=== PATIENT | female | born 1950 | race Caucasian/White ===

== ENCOUNTER 2017-05-14 14:53 | Emergency (ER) | payer MEDICARE, OTHER ==
[~2017-05-14] VITALS: Ht 167.6 cm; Wt 82.0 kg
[2017-05-14 14:55] VITALS: BP 138/85; PULSE 95; RESP 18; TEMP 99.8; O2SAT 97
--- NOTE | 2017-05-14 15:40 | PD ---
Physical Exam Time Seen by Provider: 15:37 Narrative 67yo F c/o laceration to R forearm that occurred on April 28. Stitches taken out Sunday at urgent care and wound is open and "not healing correctly." Denies fever, vomiting. Patient seen in triage. Awaiting bed placement. VS reviewed. Data Data Last Documented VS Vital Signs Date Time Temp Pulse Resp B/P Pulse Ox O2 Delivery O2 Flow Rate FiO2 05/14/17 14:55 99.8 95 18 138/85 97 Room Air [facility] Supervised Visit with YENI: Aleisha Torres May 14, 2017 15:40
--- NOTE | 2017-05-14 18:40 | PD ---
HPI Chief Complaint: Wound/Suture/Staple Re-Check Time Seen by Provider: 18:36 Travel History International Travel<30 days: No Contact w/Intl Traveler<30days: No Traveled to known affect area: No History of Present Illness HPI 67 YO left-hand dominant female presents to the ED for evaluation of laceration repair of the right forearm. Patient states that she sustained the wound on . Repair performed the same day in [place]. She had the sutures removed on at [facility]. She denies numbness, tingling, weakness, limitations to range of motion of the hand. She denies fever or chills. She states that the wound looks strange and this is what prompted her to seek evaluation today. She states that she took a course of antibiotics but is unable to identify the drug. Patient is a current smoker. [facility] Social History Tobacco Use: Yes Allergies-Medications (Allergen,Severity, Reaction): Coded Allergies: Clindamycin (Verified Allergy, Severe, Hives, 05/14/17) Penicillin (Verified Allergy, Severe, Hives, 05/14/17) Reported Meds & Prescriptions Reported Meds & Active Scripts Active Naproxen 500 Mg Tab 500 Mg PO BID Bactrim DS (Sulfamethoxazole-Trimethoprim) 800-160 Mg Tab 1 Tab PO BID 5 Days Reported Fiber (Calcium Polycarbophil) 625 Mg Tab 625 Mg PO PRN Stool Softener (Docusate Sodium) 50 Mg Capsule Fish Oil ([place]ome-3 Fatty Acids) 300 Mg Capsule Multi Vitamin Daily (Multiple Vitamin) 1 Tab Tab Calcium 600 (Calcium Carbonate) 1,500 Mg Tab 1,500 Mg PO Flovent Hfa 10.6 GM Inh (Fluticasone Propionate) 44 Mcg/Act Inh 2 Puff INH BID Use daily at the same time. Flexeril (Cyclobenzaprine HCl) 10 Mg Tab 10 Mg PO TID Rochelle (Hydrocodone-Acetaminophen) 10-325 Mg Tab 1 Tab PO DAILY PRN Fluoxetine (Fluoxetine HCl) 40 Mg Cap 40 Cap PO DAILY Trazodone (Trazodone HCl) 50 Mg Tab 50 Mg PO HS Omeprazole 20 Mg Cap Review of Systems Except as stated in HPI: all other systems reviewed are Neg Physical Exam Narrative GENERAL: Well-nourished, well-developed white female in no acute distress. SKIN: Focused skin assessment warm/dry. There is a jagged laceration of the posterior aspect of the right forearm. The laceration is full-thickness. The fascia is undisturbed. This laceration totals approximately 8-10 cm. There is a large hematoma surrounding the wound edges and the wound is partially granulated. The laceration creates 2 flaps of skin. The radial side flap is is healthy and viable. The ulnar side flap edge is dusky ~ 1cm. Mildly tender. No erythema or warmth. HEAD: Normocephalic. EYES: No scleral icterus. No injection or drainage. NECK: Supple, trachea midline. No JVD or lymphadenopathy. CARDIOVASCULAR: Regular rate and rhythm without murmurs, gallops, or rubs. RESPIRATORY: Breath sounds equal bilaterally. No accessory muscle use. GASTROINTESTINAL: Abdomen soft, non-tender, nondistended. MUSCULOSKELETAL: No cyanosis, or edema. Focused right upper extremity exam: 2+ radial pulse. The patient retains full, active, painless ROM of the upper extremity. Neurovascularly intact distally. BACK: Nontender without obvious deformity. No CVA tenderness. Data Data Last Documented VS Vital Signs Date Time Temp Pulse Resp B/P Pulse Ox O2 Delivery O2 Flow Rate FiO2 05/14/17 20:19 73 18 129/82 98 05/14/17 14:55 99.8 Room Air Orders Acetamin-Hydrocod 325-5 Mg (Rochelle 5-325 (05/14/17 20:00) MDM Medical Decision Making Medical Screen Exam Complete: Yes Emergency Medical Condition: Yes Differential Diagnosis Wound dehiscence versus hematoma evacuation versus wound debridement versus laceration versus wound infection versus cellulitis versus other Narrative Course 67 YO left-hand dominant female presents to the ED for evaluation of laceration repair of the right forearm. Patient sustained the wound on 04/28, cut it on a latch in her RV. Repair performed the same day in [place]. She had the sutures removed on 05/11 at [facility]. She states that she took a course of antibiotics but is unable to identify the drug. Patient is a current smoker. 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 Vitals reviewed. Physical exam reveals a 8-10 cm irregular laceration of the posterior aspect of the right forearm. No warmth or erythema noted. The wound is partially granulated. Large hematoma noted. The radial aspect of the wound edge is dusky. Irrigation and evacuation of the hematoma was performed at bedside. Please see procedure note for details. The edges of the wounds were approximated with steri strips and a pressure dressing was applied. The patient was instructed to return for reevaluation of the wound in 72 hours. I discussed the possibility of the need for surgical revision or intervention by the benefits specialist with the patient. I think this will likely be needed. I prescribed a course of Bactrim and Naproxen. Shes instructed to take the meds as prescribed and follow up as discussed. The patient indicated understanding of the importance of follow up. She is stable and discharged home. Procedures Procedure Narrative Wound irrigation and debridement: There is a jagged 810 cm laceration on the posterior aspect of the right forearm. The wound edges were infiltrated with a 50-50 mixture of 1% lidocaine with epinephrine and 1% lidocaine. Adequate anesthesia was obtained. The wound was irrigated with approximately 1500 mL's of normal saline. A surgical scrub brush was used to mechanically debride the wound. Pressure of the wound edges expelled a large hematoma and the skin flaps were copiously irrigated. Small amounts of nonviable tissue were removed. The wound edges were reapproximated with Mastisol and Steri-Strips. A pressure dressing was applied over the area. The patient tolerated this procedure well. She is instructed to keep the wound clean, dry and covered, follow up in 72 hours for wound recheck. Diagnosis Primary Impression: Encounter for wound re-check Referrals: Primary Care Physician Patient Instructions: Acute Wound Care (ED), General Instructions Additional Instructions: Rest, hydrate. Do not change the dressing until wound is rechecked. Do not submerge the wound. Take the antibiotics as they are prescribed. Naprosyn twice a day as prescribed for pain. Follow-up in 72 hours at the emergency department as discussed. Monitor for signs of infection, return sooner if they should appear. Return to the ED for any urgent or emergent medical condition. Med/Other Pt SpecificInfo: Prescription(s) given Scripts Naproxen 500 Mg [id number] Mg PO BID #10 TAB Ref 0 Prov:Doreen Panda DO 05/14/17 Sulfamethoxazole-Trimethoprim (Bactrim DS)800-160 Mg Tab1 Tab PO BID 5 Days Ref 0 Prov:Doreen Panda DO 05/14/17 Disposition: 01 DISCHARGE HOME Condition: Stable Lucia Kiser May 14, 2017 18:40
[2017-05-14] MEDS ORDERED: OMEP20CA2 (18:46)
[2017-05-14] MEDS ORDERED: CYCL1TAB29 PO (18:46)
[2017-05-14] MEDS ORDERED: TRAZ50TA12 PO (18:46)
[2017-05-14] MEDS ORDERED: FLUO40CA PO (18:46)
[2017-05-14] MEDS ORDERED: HYDR-3366 PO (18:46)
[2017-05-14] MEDS ORDERED: MULT1TAB46 (18:47)
[2017-05-14] MEDS ORDERED: FIBE625T10 PO (18:47)
[2017-05-14] MEDS ORDERED: DOCU50CA5 (18:47)
[2017-05-14] MEDS ORDERED: FLUTI44I INH (18:47)
[2017-05-14] MEDS ORDERED: CALCTAB94 PO (18:47)
[2017-05-14] MEDS ORDERED: OMEG300C5 (18:47)
[2017-05-14] MEDS ORDERED: NAPR500T PO (19:52)
[2017-05-14] MEDS ORDERED: BACT800T5 PO (19:52)
[2017-05-14] MEDS ORDERED: ACETAMINOPHEN/HYDROcodone 325 MG/5 MG TAB PO ONE (20:00)
[2017-05-14 20:19] VITALS: BP 129/82
== END 2017-05-14 20:19 | disposition home or self-care (01) ==
LOC: NEPD 14:53
DX: Z51.89 Encounter for other specified aftercare (principal); S51.811D Laceration without foreign body of right forearm, subsequent encounter; X58.XXXD Exposure to other specified factors, subsequent encounter; Z88.0 Allergy status to penicillin; Z88.1 Allergy status to other antibiotic agents; Z79.899 Other long term (current) drug therapy
CPT/HCPCS: 13122; 99284